=== PATIENT | female | born 1955 | race African-American/Black ===

== ENCOUNTER 2016-11-30 14:09 | Emergency (ER) | payer MEDICAID ==
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
--- NOTE | 2016-11-30 15:21 | CR ---
EXAMINATION: Right hand HISTORY: Pain COMPARISON: None TECHNIQUE: 3 views FINDINGS: There is a comminuted minimally displaced mid third phalanx fracture identified. There is likely intra-articular extension into the PIP joint. There is an adjacent nondisplaced fracture thro ugh the distal aspect of the middle fourth phalanx also noted. The remaining osseous structures appe ar osteopenic however intact. There is mild positive ulnar variance. There is likely an old healed f racture deformity of the distal radius. Mild vascular calcifications are noted. IMPRESSION: 1. Comminuted, likely intra-articular, mid third phalanx fracture. 2. Nondisplaced mid fourth phalanx fracture.
[2016-11-30 16:00] VITALS: BP 191/101
== END 2016-11-30 15:58 | disposition home or self-care (01) ==
LOC: MW.ED 14:09
DX: S62.622A Displaced fracture of middle phalanx of right middle finger, initial encounter for closed fracture (principal); S62.654A Nondisplaced fracture of middle phalanx of right ring finger, initial encounter for closed fracture; I10 Essential (primary) hypertension; Y04.0XXA Assault by unarmed brawl or fight, initial encounter
CPT/HCPCS: 73120-26-RT; 73120-RT; 99282; 99283